=== PATIENT | male | born 1945 | race Caucasian/White ===

== ENCOUNTER 2016-12-03 02:43 | Inpatient (IN) | payer MEDICARE ==
[~2016-12-03] VITALS: Ht 172.7 cm; Wt 76.0 kg
[~2016-12-03 02:43] MED LIST: CIPR500T4 PO; PRED5TAB PO
[2016-12-03 02:52] VITALS: BP 109/76; PULSE 69; RESP 16; TEMP 97.8; O2SAT 96
[2016-12-03] MEDS ORDERED: SODIUM CHLOR 0.9% 1000 ML INJ 1,000 ML IV SCH (02:54)
[2016-12-03] MEDS ORDERED: PANTOPRAZOLE SODIUM 40 MG VIAL IV PUSH ONE (03:00)
[2016-12-03] MEDS ORDERED: SODIUM CHLORIDE 0.9% FLUSH 5 ML FLUSH IVF PRN (03:00)
[2016-12-03] MEDS ORDERED: ONDANSETRON HCL 4 MG/2 ML VIAL IVP ONE (03:00)
[2016-12-03] MEDS ORDERED: SODIUM CHLOR 0.9% 1000 ML INJ 1,000 ML IV ONE ×2 (03:00)
[2016-12-03] MEDS ORDERED: FAMOTIDINE 20 MG/2 ML VIAL IV PUSH ONE (03:00)
[2016-12-03 03:01] VITALS: PULSE 67; RESP 16; O2SAT 96
[2016-12-03] MEDS: PANTOPRAZOLE INJ 80 MG in SODIUM CHLORIDE 0.9% INJ 100 ML IV SCH ×2 (03:29→14:25)
[2016-12-03 03:32] LABS: BASOPHIL % 0.2 % (0.0-2.0); EOSINOPHIL # 0.2 TH/MM3 (0-0.4); EOSINOPHIL % 1.2 % (0.0-4.0); HEMATOCRIT 36.5 % (39.0-51.0); LYMPHOCYTE # 1.7 TH/MM3 (1.0-4.8); MEAN CELL VOLUME 91.7 FL (80.0-100.0); MEAN CORPUSCULAR HEMOGLOBIN 31.9 PG (27.0-34.0); MEAN CORPUSCULAR HGB CONC 34.8 % (32.0-36.0); MONO % 7.9 % (0.0-8.0); NEUT % 78.7 % (16.0-70.0); PLATELET COUNT 427 TH/MM3 (150-450); RED BLOOD COUNT 3.98 MIL/MM3 (4.50-5.90); RED CELL DISTRIBUTION WIDTH 13.1 % (11.6-17.2)
[2016-12-03 03:34] LABS: HEMO FLAGS AUTO DIFF
--- NOTE | 2016-12-03 03:41 | RADRPT ---
EXAM DATE/TIME: 12/03/2016 02:56 [facility] COMPARISON: CHEST SINGLE AP, May 25, 2016, 6:15. INDICATIONS : Shortness of breath. MEDICAL HISTORY : Chronic obstructive pulmonary disease. SURGICAL HISTORY : None. ENCOUNTER: Initial ACUITY: 1 day PAIN SCORE: 0/10 LOCATION: Bilateral chest FINDINGS: A single view of the chest demonstrates the lungs to be symmetrically aerated without evidence of mas s, infiltrate or effusion. The cardiomediastinal contours are unremarkable. Osseous structures are intact. CONCLUSION: No acute disease. Henry Servin MD on December 03, 2016 at 3:40 Board Certified Radiologist. This report was verified electronically.
[2016-12-03 03:42] LABS: PROTHROMBIN TIME - PATIENT 11.1 SEC (9.8-11.6)
[2016-12-03 03:48] LABS: ALT (GPT) 34 U/L (12-78); ANION GAP 12 MEQ/L (5-15); AST (GOT) 30 U/L (15-37); BLOOD UREA NITROGEN 15 MG/DL (7-18); CHLORIDE 97 MEQ/L (98-107); GLOMERULAR FILTRATION RATE 70 ML/MIN (>89); POTASSIUM 3.9 MEQ/L (3.5-5.1); SODIUM (NA) 134 MEQ/L (136-145)
[2016-12-03 03:50] LABS: ALKALINE PHOSPHATASE 56 U/L (45-117); TOTAL BILIRUBIN ADULT 0.4 MG/DL (0.2-1.0)
[2016-12-03 03:51] LABS: CREATINE KINASE 95 U/L (39-308)
--- NOTE | 2016-12-03 04:00 | PD ---
HPI Chief Complaint: GI Complaint Time Seen by Provider: 02:54 Travel History International Travel<30 days: Yes Contact w/Intl Traveler<30days: Yes Name of Country Traveled to: [facility] Traveled to known affect area: No History of Present Illness HPI Patient is a 71-year-old male who presents to emergency room with complaints of nausea vomiting and abdominal pain. Patient reports that he went on vacation and returned from the [facility] on the after a 4 day vacation. Reports that after he came home from his medication, he had severe pain to his lower abdomen for 12 hours. Reports that he had resolution of symptoms of his abdominal pain after this 24 hours. Patient reports that he has been feeling fine since then, reports that the last couple days, he has been having low-grade fevers with a temperature around 99. Patient reports that he began to feel sick tonight, reports that he began to have abdominal pain and felt nauseous. Patient reports that he vomited around 5 PM today, reports that he was feeling better and decided to his sleep. Patient reports that he was too uncomfortable to sleep as he had diffuse abdominal pain, reports that he got up to go to the emergency room, reports that before he knew it he vomited coffee ground emesis and felt weak and fell to the ground hitting his head on the floor. Patient admits that he did loss consciousness after he fell for about 30 seconds. Patient reports that he is currently not on any anticoagulants. Reports that he has no medical problems at all. His only complaint currently is abdominal pain. Patient denies ingestion of alcohol. Patient denies history of GI bleed in the past. Reports that his stools have been normal color and not dark. Patient does admit to having decreased urine output over the past 2 days. Patient denies dysuria, urinary urgency or frequency. Patient denies chest pain or shortness of breath. Patient with no other complaints. PFSH Past Medical History Diminished Hearing: No Respiratory: Yes Immunizations Current: Yes Past Surgical History Abdominal Surgery: Yes (hernia, inguinal) Joint Replacement: Yes (LEFT HIP 2004) Family History Family History: Negative Social History Alcohol Use: No Tobacco Use: No Substance Use: No Allergies-Medications (Allergen,Severity, Reaction): Coded Allergies: No Known Allergies (Verified , 12/03/16) Reported Meds & Prescriptions Reported Meds & Active Scripts Active No Active Prescriptions or Reported Medications Review of Systems General / Constitutional: No: Fever Eyes: No: Visual changes HENT: No: Headaches Cardiovascular: No: Chest Pain or Discomfort Respiratory: No: Shortness of Breath Gastrointestinal: Positive: Nausea, Vomiting, Diarrhea, Abdominal Pain, Hematemesis Genitourinary: No: Dysuria Musculoskeletal: No: Pain Skin: No Rash Neurologic: No: Weakness Psychiatric: No: Depression Endocrine: No: Polydipsia Hematologic/Lymphatic: No: Easy Bruising Physical Exam Narrative GENERAL: Patient in moderate distress SKIN: Warm and dry. HEAD: Atraumatic. Normocephalic. EYES: Pupils equal and round. No scleral icterus. No injection or drainage. ENT: No nasal bleeding or discharge. Mucous membranes pink and moist. Patient with coffee-ground emesis on. NECK: Trachea midline. No JVD. Patient with mild right sided paraspinal tenderness - patient currently in C-spine precautions CARDIOVASCULAR: Regular rate and rhythm. No murmur appreciated. RESPIRATORY: No accessory muscle use. Clear to auscultation. Breath sounds equal bilaterally. GASTROINTESTINAL: Abdomen soft, diffusely tender abdomen with no rebound or guarding on exam, pt with heme neg stool - light brown stool MUSCULOSKELETAL: No obvious deformities. No clubbing. No cyanosis. No edema. NEUROLOGICAL: Awake and alert. No obvious cranial nerve deficits. Motor grossly within normal limits. Normal speech. PSYCHIATRIC: Appropriate mood and affect; insight and judgment normal. Data Data Last Documented VS Vital Signs Date Time Temp Pulse Resp B/P Pulse Ox O2 Delivery O2 Flow Rate FiO2 12/03/16 03:01 97 Room Air 12/03/16 03:01 67 16 12/03/16 02:52 97.8 109/76 Orders Complete Blood Count With Diff (12/03/16 02:54) Comprehensive Metabolic Panel (12/03/16 02:54) Lipase (12/03/16 02:54) Lactic Acid (12/03/16 02:54) Prothrombin Time / Inr (Pt) (12/03/16 02:54) Act Partial Throm Time (Ptt) (12/03/16 02:54) Urinalysis - C+S If Indicated (12/03/16 02:54) Ct Abd/Pel W/O Iv Contrast (12/03/16 02:54) Iv Access Insert/Monitor (12/03/16 02:54) Ecg Monitoring (12/03/16 02:54) Oximetry (12/03/16 02:54) NPO (12/03/16 02:54) Ondansetron Inj (Zofran Inj) (12/03/16 03:00) Sodium Chlor 0.9% 1000 Ml Inj (Ns 1000 M (12/03/16 02:54) Sodium Chloride 0.9% Flush (Ns Flush) (12/03/16 03:00) Electrocardiogram (12/03/16 02:54) Chest, Single Ap (12/03/16 02:54) Oxygen Administration (12/03/16 02:54) Famotidine Inj (Pepcid Inj) (12/03/16 03:00) Pantoprazole Inj (Protonix Inj) (12/03/16 04:00) Pantoprazole Inj (Protonix Inj) (12/03/16 03:00) Ckmb (Isoenzyme) Profile (12/03/16 02:54) Troponin I (12/03/16 02:54) Sodium Chlor 0.9% 1000 Ml Inj (Ns 1000 M (12/03/16 03:00) Ct Brain W/O Iv Contrast(Rout) (12/03/16 02:58) Ct Cerv Spine W/O Contrast (12/03/16 02:58) Sodium Chlor 0.9% 1000 Ml Inj (Ns 1000 M (12/03/16 03:00) Ng Gastric Tube Insert/Monitor (12/03/16 02:59) Admit Order (Ed Use Only) (12/03/16 05:18) Labs Laboratory Tests Test 12/03/16 03:15 White Blood Count 14.0 TH/MM3 Red Blood Count 3.98 MIL/MM3 Hemoglobin 12.7 GM/DL Hematocrit 36.5 % Mean Corpuscular Volume 91.7 FL Mean Corpuscular Hemoglobin 31.9 PG Mean Corpuscular Hemoglobin 34.8 % Concent Red Cell Distribution Width 13.1 % Platelet Count 427 TH/MM3 Mean Platelet Volume 7.6 FL Neutrophils (%) (Auto) 78.7 % Lymphocytes (%) (Auto) 12.0 % Monocytes (%) (Auto) 7.9 % Eosinophils (%) (Auto) 1.2 % Basophils (%) (Auto) 0.2 % Neutrophils # (Auto) 11.0 TH/MM3 Lymphocytes # (Auto) 1.7 TH/MM3 Monocytes # (Auto) 1.1 TH/MM3 Eosinophils # (Auto) 0.2 TH/MM3 Basophils # (Auto) 0.0 TH/MM3 CBC Comment AUTO DIFF Differential Total Cells 100 Counted Neutrophils % (Manual) 67 % Band Neutrophils % 4 % Lymphocytes % 18 % Monocytes % 9 % Eosinophils % 1 % Neutrophils # (Manual) 10.1 TH/MM3 Myelocytes 1 % Differential Comment FINAL DIFF MANUAL Atypical Lymphocytes % Platelet Estimate NORMAL Platelet Morphology Comment NORMAL Red Cell Morphology Comment NORMAL Prothrombin Time 11.1 SEC Prothromb Time International 1.0 RATIO Ratio Activated Partial 25.0 SEC Thromboplast Time Sodium Level 134 MEQ/L Potassium Level 3.9 MEQ/L Chloride Level 97 MEQ/L Carbon Dioxide Level 25.0 MEQ/L Anion Gap 12 MEQ/L Blood Urea Nitrogen 15 MG/DL Creatinine 1.05 MG/DL Estimat Glomerular Filtration 70 ML/MIN Rate Random Glucose 154 MG/DL Lactic Acid Level 1.7 mmol/L Calcium Level 8.7 MG/DL Total Bilirubin 0.4 MG/DL Aspartate Amino Transf 30 U/L (AST/SGOT) Alanine Aminotransferase 34 U/L (ALT/SGPT) Alkaline Phosphatase 56 U/L Total Creatine Kinase 95 U/L Troponin I LESS THAN 0.02 NG/ML Total Protein 6.6 GM/DL Albumin 2.7 GM/DL Lipase 77 U/L [facility] Medical Decision Making Medical Screen Exam Complete: Yes Emergency Medical Condition: Yes Interpretation(s) EKG at 0313: Normal sinus rhythm at 61 bpm, ET/QTC 436/439, no acute ST or T- wave changes Vital Signs Date Time Temp Pulse Resp B/P Pulse Ox O2 Delivery O2 Flow Rate FiO2 12/03/16 03:01 97 Room Air 12/03/16 03:01 67 16 96 Room Air 12/03/16 03:01 16 12/03/16 02:52 97.8 69 16 109/[address] 12/03/16257 Signed Impressions: Service Date/Time: Saturday, December 03, 2016 03:30 - CONCLUSION: No acute intracranial disease. Henry Servin MD Cervical Spine CT 12/03/16257 Signed Impressions: Service Date/Time: Saturday, December 03, 2016 03:32 - CONCLUSION: No fracture or subluxation. Minimal retrolisthesis C5 on C6, degenerative in nature. Henry Serivn MD Chest X-Ray 12/03/16253 Signed Impressions: Service Date/Time: Saturday, December 03, 2016 02:56 - CONCLUSION: No acute disease. Henry Servin MD Abdomen/Pelvis CT 12/03/16253 Signed Impressions: Service Date/Time: Saturday, December 03, 2016 03:38 - CONCLUSION: 1. Multiple dilated loops of small bowel which can be seen with early obstruction. 2. Diverticulosis without diverticulitis. 3. Minimal ascites. Henry Servin MD Differential Diagnosis GI bleed, gastric ulcer, ACS, electrolyte abnormality, colitis Narrative Course Patient is a 71-year-old male who presents to emergency room with complaints of nausea vomiting coffee ground emesis. Patient reports that he has been having intermittent abdominal pain since he returned home from his vacation at the [facility] on November 22, 2016. Upon arrival to the emergency room, patient with diffuse abdominal pain. Patient has been placed on rn cardiac rehab as well as continuous pulse oximeter. IV line established, patient currently receiving IV fluids as well as IV Zofran for nausea. Patient does have concerning coffee ground emesis in his valle, patient started on Protonix as well as Protonix drip. Given his questionable syncopal episode and pain to his lower neck, CT of the head and neck ordered for evaluation of possible intracranial hemorrhage versus C-spine fracture. CBC, BMP, LFTs, coags ordered for further evaluation symptoms. CT abdomen and pelvis ordered for further evaluation of abdominal pain. Patient re-evaluated, pt feeling much better, reviewed all labs and studies with pt and his including all findings. pt will be admitted for gi bleed - pt is heme neg for below, pt also with dilated loop of bowels, - only surgery is inguinal hernia repair by Dr Velez, pt agreeable to plan of care Physician Communication Physician Communication Case reviewed with Dr Giordano who accepts pt to service Diagnosis Primary Impression: GI bleed Qualified Code: K92.2 - Gastrointestinal hemorrhage, unspecified gastrointestinal hemorrhage type Additional Impressions: Syncope and collapse dilated loops of small bowel Admitting Information Admitting Physician Requests: Admit Scripts No Active Prescriptions or Reported Meds Laurel Davidson DO Dec 03, 2016 04:00
[2016-12-03 04:12] LABS: BANDS 4 % (0-6); EOSINOPHILS 1 % (0-4); MYELOCYTES 1 % (0-0); NEUTROPHIL # MANUAL DIFF 10.1 TH/MM3 (1.8-7.7); POLYS (SEG NEUTROPHILS) 67 % (16-70); SCAN/DIFF FINAL DIFF MANUAL; WBC DIFF SAMPLE 100
[2016-12-03 04:14] LABS: PLATELET ESTIMATE SMEAR NORMAL (NORMAL); PLATELET MORPHOLOGY NORMAL (NORMAL)
--- NOTE | 2016-12-03 04:32 | RADRPT ---
EXAM DATE/TIME: 12/03/2016 03:30 [facility] COMPARISON: No previous studies available for comparison. INDICATIONS : Trauma; fall. Patient hit the back of his head. RADIATION DOSE: 56.35 CTDIvol (mGy) MEDICAL HISTORY : Hernia, inguinal. SURGICAL HISTORY : None. ENCOUNTER: Initial ACUITY: 1 day PAIN SCALE: 2/10 LOCATION: cranial TECHNIQUE: Multiple contiguous axial images were obtained of the head. Using automated exposure control and adj ustment of the mA and/or kV according to patient size, radiation dose was kept as low as reasonably a chievable to obtain optimal diagnostic quality images. FINDINGS: CEREBRUM: The ventricles are normal for age. No evidence of midline shift, mass lesion, hemorrhage or acute in farction. No extra-axial fluid collections are seen. POSTERIOR FOSSA: The cerebellum and brainstem are intact. The 4th ventricle is midline. The cerebellopontine angle i s unremarkable. EXTRACRANIAL: The visualized portion of the orbits is intact. SKULL: The calvaria is intact. No evidence of skull fracture. CONCLUSION: No acute intracranial disease. Henry Servin MD on December 03, 2016 at 4:30 Board Certified Radiologist. This report was verified electronically.
--- NOTE | 2016-12-03 04:33 | RADRPT ---
EXAM DATE/TIME: 12/03/2016 03:32 [facility] COMPARISON: No previous studies available for comparison. INDICATIONS : Trauma; fall. RADIATION DOSE: 41.75 CTDIvol (mGy) MEDICAL HISTORY : Hernia, inguinal. SURGICAL HISTORY : None. ENCOUNTER: Initial ACUITY: 1 day PAIN SCALE: 2/10 LOCATION: neck TECHNIQUE: Volumetric scanning of the cervical spine was performed. Multiplanar reconstructions in the sagittal, coronal and oblique axial planes were performed. Using automated exposure control and adjustment o f the mA and/or kV according to patient size, radiation dose was kept as low as reasonably achievable to obtain optimal diagnostic quality images. FINDINGS: VERTEBRAE: Normal vertebral body height. Advanced multilevel degenerative changes greatest at C5-6 and C6-7 leve ls. No fracture. ALIGNMENT: Minimal retrolisthesis C5 on C6. No compression fracture. Facets are well aligned. Craniocervical jefe ction is intact. CONCLUSION: No fracture or subluxation. Minimal retrolisthesis C5 on C6, degenerative in nature. Henry Servin MD on December 03, 2016 at 4:30 Board Certified Radiologist. This report was verified electronically.
--- NOTE | 2016-12-03 04:41 | RADRPT ---
EXAM DATE/TIME: 12/03/2016 03:38 [facility] COMPARISON: No previous studies available for comparison. INDICATIONS : Abdominal pain with vomiting. ORAL CONTRAST: No oral contrast ingested. RADIATION DOSE: 16.34 CTDIvol (mGy) MEDICAL HISTORY : Hernia, inguinal. SURGICAL HISTORY : Left hip replacement. ENCOUNTER: Initial ACUITY: 1 day PAIN SCALE: 6/10 LOCATION: medial abdomen. TECHNIQUE: Volumetric scanning of the abdomen and pelvis was performed. Using automated exposure control and ad justment of the mA and/or kV according to patient size, radiation dose was kept as low as reasonably achievable to obtain optimal diagnostic quality images. FINDINGS: LOWER LUNGS: The visualized lower lungs are clear. LIVER: Homogeneous density without lesion. There is no dilation of the biliary tree. No calcified gallston es. SPLEEN: Normal size without lesion. PANCREAS: Within normal limits. KIDNEYS: Normal in size and shape. There is no mass, stone, or hydronephrosis. ADRENAL GLANDS: Within normal limits. VASCULAR: There is no aortic aneurysm. BOWEL/MESENTERY: Multiple dilated loops of small bowel. Transition point seen. Diverticulosis of the colon. No perfora tion or abscess. Trace ascites. There is no free intraperitoneal air or fluid. ABDOMINAL WALL: Within normal limits. RETROPERITONEUM: There is no lymphadenopathy. BLADDER: No wall thickening or mass. REPRODUCTIVE: Prostatic calcifications. INGUINAL: There is no lymphadenopathy or hernia. Previous inguinal hernia repairs. MUSCULOSKELETAL: Within normal limits for patient age. CONCLUSION: 1. Multiple dilated loops of small bowel which can be seen with early obstruction. 2. Diverticulosis without diverticulitis. 3. Minimal ascites. Henry Servin MD on December 03, 2016 at 4:35 Board Certified Radiologist. This report was verified electronically.
[2016-12-03] MEDS ORDERED: ONDANSETRON HCL 4 MG/2 ML VIAL IVP PRN (05:30)
[2016-12-03] MEDS ORDERED: SODIUM CHLORIDE 0.9% FLUSH 5 ML FLUSH FLUSH PRN (05:30)
[2016-12-03] MEDS ORDERED: MORPHINE SULFATE 4 MG/ML INJ IV PRN ×2 (05:30)
[2016-12-03] MEDS ORDERED: ACETAMINOPHEN 1000 MG/100 ML VIAL IV PRN (05:30)
[2016-12-03] MEDS ORDERED: BISACODYL 10 MG SUPP PR PRN (05:30)
--- NOTE | 2016-12-03 05:54 | HHI.HP ---
[facility] Norma Mays MD Admission Diagnosis GI BLEED, SYNCOPE Diagnoses: (1) GI bleed Diagnosis: Principal (2) Abdominal pain Diagnosis: Principal (3) SBO (small bowel obstruction) Diagnosis: Principal (4) Syncope and collapse Diagnosis: Principal Travel History International Travel<30 Days: Yes Contact w/Intl Traveler <30 Da: Yes Name of Country Traveled to: [facility] Traveled to Known Affected Are: No History of Present Illness This is a 71-year-old male with no significant PMH who was brought to the ER by EMS secondary to abdominal pain with associated nausea and vomiting and syncope. Per pt and , they recently traveled to [facility] and returned home on 11/22/16. That night, pt complained of abdominal pain, symptoms have been intermittent since then. Today pt had gotten up to go to the bathroom, had episode of coffee ground emesis followed by syncope lasting approx 30seconds. No seizure activity noted. BP noted to be in the 80s systolic by EMS. On arrival, BP 109/76, HR 69, O2 sat 96% on RA, Afebrile. WBC 14.0. Chemistry essentially unremarkable. Troponin negative. CT Head and C-spine negative for acute findings. CXR with no acute findings. CT Abd/ Pelvis w/ dilated loops of small bowel, possibly early obstruction. Hemoccult negative. Started on Protonix gtt in ER. Pt and requesting to be seen by Dr. Velez and GI doctor. Review of Systems Other ROS: 14 point review of systems otherwise negative. Past Family Social History Past Medical History PMH: None Past Surgical History PAST SURGICAL HISTORY: Inguinal Hernia Repair, Left Hip Replacement Allergies: Coded Allergies: No Known Allergies (Verified , 12/03/16) Family History PAST FAMILY HISTORY: Reviewed. No h/o DM or CAD Social History PAST SOCIAL HISTORY: Negative for alcohol tobacco or drugs. Physical Exam Vital Signs Vital Signs Date Time Temp Pulse Resp B/P Pulse Ox O2 Delivery O2 Flow Rate FiO2 12/03/16 03:01 97 Room Air 12/03/16 03:01 67 16 96 Room Air 12/03/16 03:01 16 12/03/16 02:52 97.8 69 16 109/76 96 Physical Exam PE: GENERAL: Middle-aged white male in no acute distress. at bedside. HEENT: PERRLA, EOMI. No scleral icterus or conjunctival pallor. No lid lag or facial droop. CARDIOVASCULAR: Regular rate and rhythm. No obvious murmurs to auscultation. No chest tenderness to palpation. RESPIRATORY: No obvious rhonchi or wheezing. Clear to auscultation. Breath sounds equal bilaterally. GASTROINTESTINAL: Abdomen soft, mild diffuse tenderness to palpation, nondistended. BS normal. MUSCULOSKELETAL: Extremities without clubbing, cyanosis, or edema. No obvious deformities. NEUROLOGICAL: Awake, alert and oriented x4. No focal neurologic deficits. Moving both upper and lower extremities spontaneously. Laboratory Laboratory Tests Test 12/03/16 03:15 White Blood Count 14.0 Red Blood Count 3.98 Hemoglobin 12.7 Hematocrit 36.5 Mean Corpuscular Volume 91.7 Mean Corpuscular Hemoglobin 31.9 Mean Corpuscular Hemoglobin 34.8 Concent Red Cell Distribution Width 13.1 Platelet Count 427 Mean Platelet Volume 7.6 Neutrophils (%) (Auto) 78.7 Lymphocytes (%) (Auto) 12.0 Monocytes (%) (Auto) 7.9 Eosinophils (%) (Auto) 1.2 Basophils (%) (Auto) 0.2 Neutrophils # (Auto) 11.0 Lymphocytes # (Auto) 1.7 Monocytes # (Auto) 1.1 Eosinophils # (Auto) 0.2 Basophils # (Auto) 0.0 CBC Comment AUTO DIFF Differential Total Cells 100 Counted Neutrophils % (Manual) 67 Band Neutrophils % 4 Lymphocytes % 18 Monocytes % 9 Eosinophils % 1 Neutrophils # (Manual) 10.1 Myelocytes 1 Differential Comment FINAL DIFF MANUAL Atypical Lymphocytes Platelet Estimate NORMAL Platelet Morphology Comment NORMAL Red Cell Morphology Comment NORMAL Prothrombin Time 11.1 Prothromb Time International 1.0 Ratio Activated Partial 25.0 Thromboplast Time Sodium Level 134 Potassium Level 3.9 Chloride Level 97 Carbon Dioxide Level 25.0 Anion Gap 12 Blood Urea Nitrogen 15 Creatinine 1.05 Estimat Glomerular Filtration 70 Rate Random Glucose 154 Lactic Acid Level 1.7 Calcium Level 8.7 Total Bilirubin 0.4 Aspartate Amino Transf 30 (AST/SGOT) Alanine Aminotransferase 34 (ALT/SGPT) Alkaline Phosphatase 56 Total Creatine Kinase 95 Troponin I LESS THAN 0.02 Total Protein 6.6 Albumin 2.7 Lipase 77 Result Diagram: 12/03/1631412/03/16314 Assessment and Plan Problem List: (1) GI bleed ICD Code: K92.2 Status: Acute (2) Abdominal pain ICD Code: R10.9 Status: Acute (3) SBO (small bowel obstruction) ICD Code: K56.69 Status: Acute (4) Syncope and collapse ICD Code: R55 Status: Acute Assessment and Plan A/P: 1. GI Bleed: s/p episode of coffee-ground emesis prior to arrival in ER. Hemoccult negative. Vitals stable. Hgb 12.7. Started on Protonix gtt in ER, will continue. GI Consult for further evaluation of questionable bleed. 2. Abdominal Pain: diffuse abdominal pain, nausea and vomiting intermittently x2 wks. Denies fever, chills or diarrhea. +leukocytosis, afebrile. Will start on empiric treatment w/ Cipro/Flagyl. 3. Early SBO: CT Abd/Pelvis w/ multiple loops of dilated small bowel, likely early SBO, images reviewed by me. NPO, IVF, analgesics/antiemetics as needed. Nausea/vomiting now resolved. Pt and requesting to be seen by Dr. Velez. No emergent surgical intervention indicated at this time. Will place routine consult. 4. Syncope: syncopal episode following vomiting, likely vasovagal. EMS reported BP 80's systolic, currently BP 109/76, HR 69. Initial trop negative. IVF for hydration. Check serial enzymes to eval for underlying ischemia. 5. DVT Prophylaxis: SCD/Teds. 6. Social work for d/c planning as needed. 7. Case discussed w/ ER physician at length. Physician Certification 2 Midnight Certification Type: Admission for Inpatient Services Order for Inpatient Services The services are ordered in accordance with Medicare regulations or non- Medicare payer requirements, as applicable. In the case of services not specified as inpatient-only, they are appropriately provided as inpatient services in accordance with the 2-midnight benchmark. Estimated LOS (days): 2 days is the estimated time the patient will need to remain in the hospital, assuming treatment plan goals are met and no additional complications. Post-Hospital Plan: Not yet determined Problem Qualifiers (1) GI bleed: Qualified Code: K92.2 - Gastrointestinal hemorrhage, unspecified gastrointestinal hemorrhage type Evelina Giordano MD Dec 03, 2016 05:54
[2016-12-03] MEDS: SODIUM CHLOR 0.9% 1000 ML INJ 1,000 ML IV SCH ×2 (06:00→18:10)
[2016-12-03] MEDS: CIPROFLOXACIN 400 MG PREMIX 200 ML IV SCH ×2 (06:01→18:10)
[2016-12-03 06:19] LABS: BACTERIA, URINE FEW /hpf; BLOOD, URINE NEG (NEG); COMMENT (UR) CULT NOT INDICATED; CULTURE IF INDICATED CULT NOT INDICATED; GLUCOSE,URINE NEG (NEG); KETONE, URINE 10 mg/dL (NEG); MUCUS URINE FEW /lpf (OCC); NITRITE,URINE NEG (NEG); URINE COLOR LIGHT-YELLOW (YELLW/STRAW)
--- NOTE | 2016-12-03 08:19 | PD.CONS ---
HPI History of Present Illness This is a 71 year old male patient who recently traveled to [place] and returned home on 11/22. On the way back, he started having intermittent abdominal pain described as "glass in his lower abdomen." He also had a some abdominal distention with this. He has had bowel movements, but denies any diarrhea. He tried taking clear and full liquids for a few days and seemed to be getting better. He does not usually get GERD, but has been having frequent reflux and heartburn since his symptoms began. Yesterday, he had a papaya for breakfast, oatmeal for lunch, and a salmon and salad for dinner. After dinner, he started having nausea and vomiting. His emesis consisted of coffee ground emesis. After this, he had a syncopal episode where he fell backwards and struck his head. EMT was called and he was brought to the ER for further evaluation. He has been having fever and chills, but his reports that his last fever was about 3 days ago and was 100.5. Abdomen/Pelvis CT (12/03/16)----- > 1. Multiple dilated loops of small bowel which can be seen with early obstruction. 2. Diverticulosis without diverticulitis. 3. Minimal ascites. He has a hx of 2 hernia repairs, one inguinal and he cannot recall the other. No other abdominal surgeries. No hx of PUD. He does not drink and does not take NSAIDs. He has never had a colonoscopy. He last had a bowel movement yesterday at 530pm and reports he is not passing flatus at this time. (Tammy Puri) [facility]LY [facility] Past Medical History Denies Past Surgical History Inguinal Hernia Repair Unknown hernia repair Left Hip Replacement (Tammy Puri) Coded Allergies: No Known Allergies (Verified , 12/03/16) Medications Allergies Coded Allergies Type Severity Reaction Last Updated Verified No Known Allergies 12/03/16 Yes Active Scripts Medications Dose Route/Sig Days Date Category No Active Prescriptions or Reported Medications Rx Family History No family hx of esophageal, gastric, or colorectal cancer. Father had heart disease Mother had TIAs Social History Negative for alcohol tobacco or drugs. (Tammy Puri) Review of Systems Constitutional: COMPLAINS OF: Fatigue, Fever, Chills, DENIES: Weight loss Respiratory: DENIES: Cough, Shortness of breath Cardiovascular: DENIES: Chest pain Gastrointestinal: COMPLAINS OF: Abdominal pain, Nausea, Vomiting, Swelling of Abdomen, Heartburn, Hematemesis, DENIES: Black stools, Bloody stools, Constipation, Diarrhea Musculoskeletal: COMPLAINS OF: Joint pain Integumentary: DENIES: Abnormal pigmentation Hematologic/lymphatic: DENIES: Bruising Neurologic: DENIES: Headache Psychiatric: DENIES: Confusion (PuriTammy Arandaed FRITZ) GI Exam Vitals I&O Vital Signs Date Time Temp Pulse Resp B/P Pulse Ox O2 Delivery O2 Flow Rate FiO2 12/03/16 03:01 97 Room Air 12/03/16 03:01 67 16 96 Room Air 12/03/16 03:01 16 12/03/16 02:52 97.8 69 16 109/76 96 I/O 12/02/16 12/02/16 12/02/16 12/03/16 12/03/16 12/03/16 07:00 15:00 23:00 07:00 15:00 23:00 Output Total 3000 ml Balance -3000 ml Output Emesis 3000 ml Imaging Last Impressions Head CT 12/03/16257 Signed Impressions: Service Date/Time: Saturday, December 03, 2016 03:30 - CONCLUSION: No acute intracranial disease. Henry Servin MD Cervical Spine CT 12/03/16257 Signed Impressions: Service Date/Time: Saturday, December 03, 2016 03:32 - CONCLUSION: No fracture or subluxation. Minimal retrolisthesis C5 on C6, degenerative in nature. Henry Servin MD Chest X-Ray 12/03/16253 Signed Impressions: Service Date/Time: Saturday, December 03, 2016 02:56 - CONCLUSION: No acute disease. Henry Servin MD Abdomen/Pelvis CT 12/03/16253 Signed Impressions: Service Date/Time: Saturday, December 03, 2016 03:38 - CONCLUSION: 1. Multiple dilated loops of small bowel which can be seen with early obstruction. 2. Diverticulosis without diverticulitis. 3. Minimal ascites. Henry Servin MD Laboratory Test 12/03/16 12/03/16 03:15 06:00 White Blood Count 14.0 TH/MM3 Red Blood Count 3.98 MIL/MM3 Hemoglobin 12.7 GM/DL Hematocrit 36.5 % Mean Corpuscular Volume 91.7 FL Mean Corpuscular Hemoglobin 31.9 PG Mean Corpuscular Hemoglobin 34.8 % Concent Red Cell Distribution Width 13.1 % Platelet Count 427 TH/MM3 Mean Platelet Volume 7.6 FL Neutrophils (%) (Auto) 78.7 % Lymphocytes (%) (Auto) 12.0 % Monocytes (%) (Auto) 7.9 % Eosinophils (%) (Auto) 1.2 % Basophils (%) (Auto) 0.2 % Neutrophils # (Auto) 11.0 TH/MM3 Lymphocytes # (Auto) 1.7 TH/MM3 Monocytes # (Auto) 1.1 TH/MM3 Eosinophils # (Auto) 0.2 TH/MM3 Basophils # (Auto) 0.0 TH/MM3 CBC Comment AUTO DIFF Differential Total Cells 100 Counted Neutrophils % (Manual) 67 % Band Neutrophils % 4 % Lymphocytes % 18 % Monocytes % 9 % Eosinophils % 1 % Neutrophils # (Manual) 10.1 TH/MM3 Myelocytes 1 % Differential Comment FINAL DIFF MANUAL Atypical Lymphocytes % Platelet Estimate NORMAL Platelet Morphology Comment NORMAL Red Cell Morphology Comment NORMAL Prothrombin Time 11.1 SEC Prothromb Time International 1.0 RATIO Ratio Activated Partial 25.0 SEC Thromboplast Time Sodium Level 134 MEQ/L Potassium Level 3.9 MEQ/L Chloride Level 97 MEQ/L Carbon Dioxide Level 25.0 MEQ/L Anion Gap 12 MEQ/L Blood Urea Nitrogen 15 MG/DL Creatinine 1.05 MG/DL Estimat Glomerular Filtration 70 ML/MIN Rate Random Glucose 154 MG/DL Lactic Acid Level 1.7 mmol/L Calcium Level 8.7 MG/DL Total Bilirubin 0.4 MG/DL Aspartate Amino Transf 30 U/L (AST/SGOT) Alanine Aminotransferase 34 U/L (ALT/SGPT) Alkaline Phosphatase 56 U/L Total Creatine Kinase 95 U/L Troponin I LESS THAN 0.02 NG/ML Total Protein 6.6 GM/DL Albumin 2.7 GM/DL Lipase 77 U/L Urine Color LIGHT-YELLOW Urine Turbidity CLEAR Urine pH 7.0 Urine Specific [place] 1.008 Urine Protein NEG mg/dL Urine Glucose (UA) NEG mg/dL Urine Ketones 10 mg/dL Urine Occult Blood NEG Urine Nitrite NEG Urine Bilirubin NEG Urine Urobilinogen LESS THAN 2.0 MG/DL Urine Leukocyte Esterase NEG Urine RBC 1 /hpf Urine WBC 2 /hpf Urine Bacteria FEW /hpf Urine Mucus FEW /lpf Microscopic Urinalysis Comment CULT NOT INDICATED Physical Examination HEENT: Normocephalic; atraumatic; no jaundice. Throat is clear. NECK: Neck is supple, no JVD, no lymphadenopathy. CHEST: CTA CARDIAC: RRR ABDOMEN: Soft, mildly distended, nontender; no hepatosplenomegaly; bowel sounds are present in all four quadrants. EXTREMITIES: No clubbing, cyanosis, or edema. SKIN: Red spotted rash to trunk and BUE- pt states acinetic keratosis- normal YOUTH MANAGER: No focal deficits; alert and oriented times three. (PuriTammy Trotter GLOST TILE SHADER) Assessment and Plan Plan ASSESSMENT: - ? GIB, Coffee ground emesis. One episode of coffee ground emesis yesterday. No hx of PUD. No NSAIDs/ETOH. HH stable 12.7/36.5. Protonix Gtt. NPO. No further episodes. - N/V, Abdominal pain with abnormal imaging concerning for possible early small bowel obstruction. Abdomen/Pelvis CT (12/03/16)-----> 1. Multiple dilated loops of small bowel which can be seen with early obstruction. 2. Diverticulosis without diverticulitis. 3. Minimal ascites. Symptoms began on the way back from [place]. He did have ice cubes and salad washed in their water. It started as lower abdominal pain and fevers WITHOUT diarrhea. This was improving but he started having epigastric pain and nausea/vomiting yesterday. No other sick contacts. WBC 14.0. Pt had 2 hernia surgeries, one inguinal- cannot recall what the other was but denies any other abdominal surgeries. He last had a bowel movement yesterday at 530pm. Clinically he is mildly distended. No further nausea/vomiting. Will get repeat KUB and give trial of clear liquids. ? Gastroenteritis causing inflammation of the small bowel. GS has been consulted for further evaluation and recommendations. - Leukocytosis. WBC 14.0. Cipro/Flagyl - Anemia. HH stable. Will monitor. - Red spotted rash to trunk and upper extremities. Pt reports this is his normal and it is r/t actinic keratosis. PLAN: - Clear liquids - Cont. Protonix Gtt - Monitor serial H/H's - KUB today - CBC, CMP in am - Cipro/Flagyl - GS has been consulted - Supportive care - Further recommendations to follow based on results of above - Pt seen and examined by Dr. Miller and myself and this note is written on his behalf (Tammy Puri) Physician Comments Patient seen and examined Agree with above Continue with current supportive care Monitor labs We will obtain a Gastrografin small bowel follow-through Consider EGD colonoscopy thereafter (Jp Miller MD) Tammy Puri Dec 03, 2016 08:19 Jp Miller MD Dec 03, 2016 18:29
--- NOTE | 2016-12-03 08:24 | EKG ---
Date Performed: 12/03/2016 Time Performed: 03:15:22 PTAGE: 71 years EKG: Sinus rhythm BORDERLINE LEFT AXIS DEVIATION BORDERLINE ECG PREVIOUS TRACING : 05/25/2016 06.07 No significant change from previous tracing noted. DOCTOR: David Rios Interpretating Date/Time 12/03/2016 08:22:35
[2016-12-03] MEDS: metroNIDAZOLE 500 MG INJ 100 ML IV SCH ×2 (09:02→18:10)
[2016-12-03] MEDS: SODIUM CHLORIDE 0.9% FLUSH 5 ML FLUSH FLUSH SCH ×2 (09:02→21:00)
[2016-12-03 09:15] VITALS: BP 112/70; PULSE 75; RESP 18; TEMP 96.7; O2SAT 98
[2016-12-03 09:37] LABS: HEMATOCRIT 32.6 % (39.0-51.0); REVIEW FLAG FINAL
--- NOTE | 2016-12-03 14:14 | RADRPT ---
EXAM DATE/TIME: 12/03/2016 12:12 [facility] COMPARISON: CT ABDOMEN & PELVIS W/O CONTRAST, December 03, 2016, 3:38. INDICATIONS : Vomiting MEDICAL HISTORY : Chronic obstructive pulmonary disease. SURGICAL HISTORY : Inguinal hernia repair. Left hip replacement ENCOUNTER: Subsequent ACUITY: 2 weeks PAIN SCORE: 0/10 LOCATION: Abdomen FINDINGS: Dilated loops of air-filled small bowel remain evident in the mid abdomen and left upper quadrant. Nu merous clips are seen along the pelvic floor. Patient is status post left hip replacement. CONCLUSION: Persistent proximal small bowel ileus characteristic of a partial small bowel obstruction. Alec Buck MD on December 03, 2016 at 14:09 Board Certified Radiologist. This report was verified electronically.
--- NOTE | 2016-12-03 14:47 | PD.ID.CON ---
History of Present Illness Service ID Consult Requested By Dr Velez Reason for Consult fever in returning traveller Primary Care Physician Norma Mays MD Diagnoses: History of Present Illness 71 yo male with unremarkable past med hx presented with 10 day h/o daily fevers up to 102, GI discomfort, including abdominal pain, decreased appateite, nausea vomiting and abdominal distension He presented today after passing out and hitting his head and hand Denies diarrhea He was on [place] startind Nov 15 and his problem started on the way back home on nov 22. A night prior he ate a raw vegetable salad in local restaurant. His denies having any similar symptoms, she has not eaten any raw food while on [employer], only well cooked. Pt denies unusual animal or insect exposure and the couple was using DEEt for mosquito bites prevention. They lived in a local hotel and thre activity included swimming and beaching Pt was not any abx since he developped the above3 smx untill he presented today pt had CT A/P done that showed possible early small bowel obstruction, he was seen by Dr Velez who recommended conservative mangement, clinical observation and working up for infection Pt was started in Cipro and Flagyl IV No more emesis Review of Systems Other as per history of present illness, the rest of 12 point reviw is negative Past Family Social History Allergies: Coded Allergies: No Known Allergies (Verified , 12/03/16) Past Medical History PMH: None Past Surgical History Inguinal Hernia Repair, Left Hip Replacement Active Ordered Medications Medications where reviewed in EMR Antibiotics Include: Cipro and Flagyl IV Family History Non-Contributory. Social History remote Tobacco. No ETOH. No Illicit Drugs. Physical Exam Vital Signs Vital Signs Date Time Temp Pulse Resp B/P Pulse Ox O2 Delivery O2 Flow Rate FiO2 12/03/16 09:15 96.7 75 18 112/70 98 12/03/16 03:01 97 Room Air 12/03/16 03:01 67 16 96 Room Air 12/03/16 03:01 16 12/03/16 02:52 97.8 69 16 109/76 96 Physical Exam CONSTITUTIONAL/GENERAL: This is an adequately nourished patient, in no apparent distress. TUBES/LINES/DRAINS: SKIN: No jaundice, rashes, + scally erythematou lesions mostly on sun exposed areas cw actinic keratitis. Skin temperature appropriate. Not diaphoretic. HEAD: Atraumatic. Normocephalic. EYES: Pupils equal and round and reactive. Extraocular motions intact. No scleral icterus. No injection or drainage. Fundi not examined. ENT: Hearing grossly normal. Nose without bleeding or purulent drainage. Throat without visible erythema, exudates, masses, or lesions. NECK: Trachea midline. Supple, nontender. CARDIOVASCULAR: Regular rate and rhythm without murmurs, gallops, or rubs. No JVD. Peripheral pulses symmetric. RESPIRATORY/CHEST: Symmetric, unlabored respirations. Clear to auscultation. Breath sounds equal bilaterally. No wheezes, rales, or rhonchi. GASTROINTESTINAL: Abdomen soft, non-tender, moderately distended. No hepato- splenomegaly, or palpable masses. No guarding. Bowel sounds present. GENITOURINARY: Without palpable bladder distension. MUSCULOSKELETAL: Extremities without clubbing, cyanosis, or edema. No joint tenderness or effusion noted. No calf tenderness. No mottling or clubbing. LYMPHATICS: No palpable cervical or supraclavicular adenopathy. NEUROLOGICAL: Awake and alert. Motor and sensory grossly within normal limits. Follows commands. Cognitively sharp. Moves all extremities. PSYCHIATRIC: No obvious anxiety/depression. no apparent hallucinations or other psychotic thought process. Laboratory Laboratory Tests Test 12/03/16 12/03/16 12/03/16 03:15 06:00 09:22 White Blood Count 14.0 Red Blood Count 3.98 Hemoglobin 12.7 11.2 Hematocrit 36.5 32.6 Mean Corpuscular Volume 91.7 Mean Corpuscular Hemoglobin 31.9 Mean Corpuscular Hemoglobin 34.8 Concent Red Cell Distribution Width 13.1 Platelet Count 427 Mean Platelet Volume 7.6 Neutrophils (%) (Auto) 78.7 Lymphocytes (%) (Auto) 12.0 Monocytes (%) (Auto) 7.9 Eosinophils (%) (Auto) 1.2 Basophils (%) (Auto) 0.2 Neutrophils # (Auto) 11.0 Lymphocytes # (Auto) 1.7 Monocytes # (Auto) 1.1 Eosinophils # (Auto) 0.2 Basophils # (Auto) 0.0 CBC Comment AUTO DIFF Differential Total Cells 100 Counted Neutrophils % (Manual) 67 Band Neutrophils % 4 Lymphocytes % 18 Monocytes % 9 Eosinophils % 1 Neutrophils # (Manual) 10.1 Myelocytes 1 Differential Comment FINAL DIFF MANUAL Atypical Lymphocytes Platelet Estimate NORMAL Platelet Morphology Comment NORMAL Red Cell Morphology Comment NORMAL Prothrombin Time 11.1 Prothromb Time International 1.0 Ratio Activated Partial 25.0 Thromboplast Time Sodium Level 134 Potassium Level 3.9 Chloride Level 97 Carbon Dioxide Level 25.0 Anion Gap 12 Blood Urea Nitrogen 15 Creatinine 1.05 Estimat Glomerular Filtration 70 Rate Random Glucose 154 Lactic Acid Level 1.7 Calcium Level 8.7 Total Bilirubin 0.4 Aspartate Amino Transf 30 (AST/SGOT) Alanine Aminotransferase 34 (ALT/SGPT) Alkaline Phosphatase 56 Total Creatine Kinase 95 Troponin I LESS THAN 0.02 0.02 Total Protein 6.6 Albumin 2.7 Lipase 77 Urine Color LIGHT-YELLOW Urine Turbidity CLEAR Urine pH 7.0 Urine Specific [place] 1.008 Urine Protein NEG Urine Glucose (UA) NEG Urine Ketones 10 Urine Occult Blood NEG Urine Nitrite NEG Urine Bilirubin NEG Urine Urobilinogen LESS THAN 2.0 Urine Leukocyte Esterase NEG Urine RBC 1 Urine WBC 2 Urine Bacteria FEW Urine Mucus FEW Microscopic Urinalysis Comment CULT NOT INDICATED Result Diagram: 12/03/1692112/03/16314 Imaging Last Impressions Head CT 12/03/16257 Signed Impressions: Service Date/Time: Saturday, December 03, 2016 03:30 - CONCLUSION: No acute intracranial disease. Henry Servin MD Cervical Spine CT 12/03/16257 Signed Impressions: Service Date/Time: Saturday, December 03, 2016 03:32 - CONCLUSION: No fracture or subluxation. Minimal retrolisthesis C5 on C6, degenerative in nature. Henry Servin MD Chest X-Ray 12/03/16253 Signed Impressions: Service Date/Time: Saturday, December 03, 2016 02:56 - CONCLUSION: No acute disease. Henry Servin MD Abdomen/Pelvis CT 12/03/16253 Signed Impressions: Service Date/Time: Saturday, December 03, 2016 03:38 - CONCLUSION: 1. Multiple dilated loops of small bowel which can be seen with early obstruction. 2. Diverticulosis without diverticulitis. 3. Minimal ascites. Henry Servin MD Assessment and Plan Assessment and Plan Fever with GI complaints in returned traveller ([facility]) - + exposure to potential food born pathogens Rec's: cont cipro + flagyl - fu blood clx - chk stool studies - monitor clinically Discussed Condition With pt, at b/s Magda Quinteros MD Dec 03, 2016 14:47
[2016-12-03 17:17] LABS: HEMATOCRIT 31.9 % (39.0-51.0); REVIEW FLAG FINAL
[2016-12-03 17:26] VITALS: BP 120/68; PULSE 70; RESP 20; TEMP 96.2; O2SAT 95
[2016-12-03 21:56] VITALS: BP 117/83; PULSE 70; RESP 20; TEMP 96.4; O2SAT 97
[2016-12-03] MEDS ORDERED: DIATRIZOATE MEGLUM/DIATRIZOATE SOD 120 ML BTL (for RAD DIAG) PO ONE (21:59)
--- NOTE | 2016-12-03 22:45 | RADRPT ---
EXAM DATE/TIME: 12/03/2016 19:29 CORRECTION Corrected on: December 05, 2016; CORRECTED: Added missing examform information. [facility] COMPARISON: No previous studies available for comparison. INDICATIONS : Possible small bowel obstruction. Hematemesis. Epigastric pain. Lack of bowel movement. FLUORO TIME: 0 minutes IMAGE COUNT: 11 CONTRAST: [facility] IMAGING TIME(S): 15 min, 30 min, 45 min, 1 hr, 1.5 hrs, 2.5 hrs MEDICAL HISTORY : Chronic obstructive pulmonary disease. SURGICAL HISTORY : Inguinal hernia repair. Left hip arthroplasty. ENCOUNTER: Subsequent ACUITY: 2 days PAIN SCORE: 3/10 LOCATION: upper quadrant abdomen, epigastric FINDINGS: The preliminary AP edge burnisher uppers films demonstrate gas and stool noted segmentally in the colon. There is a l oop of mildly dilated air-containing small bowel in the mid and left abdomen measuring up to 4.4 cm i n diameter. The patient is status post left hip arthroplasty. There are multiple surgical clips and s taples in the pelvis. The stomach is grossly unremarkable. There is a small hiatal hernia. Examination of the small bowel demonstrates mild prominence of multiple loops of jejunum and ileum. T erminal ileum is not well-visualized. There is no evidence of mass or obstruction. No intraluminal f illing defects are identified. Small bowel transit time is normal at approximately 1-1/2 hours. adair norris. On the 2 hour film there was contrast throughout the colon. CONCLUSION: No evidence of obstruction. There are prominent loops of small bowel which are most c onsistent with an ileus. Huey Mcbride MD on December 03, 2016 at 22:39 Board Certified Radiologist. This report was verified electronically. Sign Maintenance on December 05, 2016 at 8:31 Board Certified Radiologist. This report was verified electronically.
[2016-12-03 23:16] LABS: HEMATOCRIT 35.9 % (39.0-51.0); REVIEW FLAG FINAL
[2016-12-04] MEDS: PANTOPRAZOLE INJ 80 MG in SODIUM CHLORIDE 0.9% INJ 100 ML IV SCH ×2
[2016-12-04 00:34] VITALS: BP 122/80; PULSE 88; RESP 22; TEMP 97.4; O2SAT 98
[2016-12-04] MEDS: SODIUM CHLOR 0.9% 1000 ML INJ 1,000 ML IV SCH ×3 (00:36→21:26)
[2016-12-04] MEDS: CIPROFLOXACIN 400 MG PREMIX 200 ML IV SCH ×2 (05:05→17:18)
[2016-12-04 07:20] LABS: AUTOMATED NEUTROPHIL # 5.4 TH/MM3 (1.8-7.7); BASOPHIL % 0.2 % (0.0-2.0); EOSINOPHIL # 0.3 TH/MM3 (0-0.4); EOSINOPHIL % 3.3 % (0.0-4.0); HEMATOCRIT 30.5 % (39.0-51.0); HEMO FLAGS DIFF FINAL; LYMPHOCYTE # 1.3 TH/MM3 (1.0-4.8); MEAN CELL VOLUME 91.7 FL (80.0-100.0); MEAN CORPUSCULAR HEMOGLOBIN 32.2 PG (27.0-34.0); MEAN CORPUSCULAR HGB CONC 35.2 % (32.0-36.0); MONO % 9.9 % (0.0-8.0); NEUT % 69.6 % (16.0-70.0); PLATELET COUNT 336 TH/MM3 (150-450); RED BLOOD COUNT 3.33 MIL/MM3 (4.50-5.90); WHITE BLOOD COUNT 7.7 TH/MM3 (4.0-11.0)
[2016-12-04 07:59] LABS: ALKALINE PHOSPHATASE 48 U/L (45-117); ALT (GPT) 22 U/L (12-78); ANION GAP 9 MEQ/L (5-15); AST (GOT) 13 U/L (15-37); BICARBONATE 22.2 MEQ/L (21.0-32.0); BLOOD UREA NITROGEN 7 MG/DL (7-18); CHLORIDE 113 MEQ/L (98-107); GLOMERULAR FILTRATION RATE 97 ML/MIN (>89); POTASSIUM 3.3 MEQ/L (3.5-5.1); SODIUM (NA) 144 MEQ/L (136-145); TOTAL BILIRUBIN ADULT 0.2 MG/DL (0.2-1.0)
[2016-12-04 08:27] VITALS: BP 103/63; PULSE 69; RESP 19; TEMP 98; O2SAT 96
[2016-12-04] MEDS: metroNIDAZOLE 500 MG INJ 100 ML IV SCH ×4 (09:58→23:32)
[2016-12-04] MEDS: SODIUM CHLORIDE 0.9% FLUSH 5 ML FLUSH FLUSH SCH ×2 (09:59→20:55)
[2016-12-04] MEDS: PANTOPRAZOLE SOD 40 MG DELAYED RELEASE TAB PO SCH (10:30)
--- NOTE | 2016-12-04 10:59 | HHI.GIFU ---
Subjective Remarks Sitting up on the side of the bed. Reports that he feels much better today. No nausea or vomiting. No abdominal pain. + BM- multiple liquid stools yesterday. 2 today. No bleeding. (Tammy Puri) Objective Vitals I&O Vital Signs Date Time Temp Pulse Resp B/P Pulse Ox O2 Delivery O2 Flow Rate FiO2 12/04/16 08:27 98.0 69 19 103/63 96 12/04/16 00:34 97.4 88 22 122/80 98 12/03/16 21:56 96.4 70 20 117/83 97 12/03/16 17:26 96.2 70 20 120/68 95 I/O 12/03/16 12/03/16 12/03/16 12/04/16 12/04/16 12/04/16 07:00 15:00 23:00 07:00 15:00 23:00 Output Total 3000 ml Balance -3000 ml Output Emesis 3000 ml Laboratory Laboratory Tests Test 12/03/16 12/03/16 12/03/16 12/04/16 16:30 17:10 23:00 06:32 Hemoglobin 11.1 12.3 10.7 Hematocrit 31.9 35.9 30.5 Troponin I 0.02 White Blood Count 7.7 Red Blood Count 3.33 Mean Corpuscular Volume 91.7 Mean Corpuscular Hemoglobin 32.2 Mean Corpuscular Hemoglobin 35.2 Concent Red Cell Distribution Width 13.0 Platelet Count 336 Mean Platelet Volume 7.2 Neutrophils (%) (Auto) 69.6 Lymphocytes (%) (Auto) 17.0 Monocytes (%) (Auto) 9.9 Eosinophils (%) (Auto) 3.3 Basophils (%) (Auto) 0.2 Neutrophils # (Auto) 5.4 Lymphocytes # (Auto) 1.3 Monocytes # (Auto) 0.8 Eosinophils # (Auto) 0.3 Basophils # (Auto) 0.0 CBC Comment DIFF FINAL Differential Comment Test 12/04/16 07:00 Sodium Level 144 Potassium Level 3.3 Chloride Level 113 Carbon Dioxide Level 22.2 Anion Gap 9 Blood Urea Nitrogen 7 Creatinine 0.79 Estimat Glomerular Filtration 97 Rate Random Glucose 99 Calcium Level 7.6 Total Bilirubin 0.2 Aspartate Amino Transf 13 (AST/SGOT) Alanine Aminotransferase 22 (ALT/SGPT) Alkaline Phosphatase 48 Total Protein 5.6 Albumin 2.3 Date/Time Procedure Status Source Growth 12/03/16 07:05 Aerobic Blood Culture Received Blood Peripheral Pending 12/03/16 07:05 Anaerobic Blood Culture Received Blood Peripheral Pending Imaging Last Impressions Head CT 12/03/16257 Signed Impressions: Service Date/Time: Saturday, December 03, 2016 03:30 - CONCLUSION: No acute intracranial disease. Henry Servin MD Cervical Spine CT 12/03/16257 Signed Impressions: Service Date/Time: Saturday, December 03, 2016 03:32 - CONCLUSION: No fracture or subluxation. Minimal retrolisthesis C5 on C6, degenerative in nature. Henry Servin MD Chest X-Ray 12/03/16253 Signed Impressions: Service Date/Time: Saturday, December 03, 2016 02:56 - CONCLUSION: No acute disease. Henry Servin MD Abdomen/Pelvis CT 12/03/16253 Signed Impressions: Service Date/Time: Saturday, December 03, 2016 03:38 - CONCLUSION: 1. Multiple dilated loops of small bowel which can be seen with early obstruction. 2. Diverticulosis without diverticulitis. 3. Minimal ascites. Henry Servin MD Small Bowel X-Ray 12/03/16 0000 Signed Impressions: Service Date/Time: Saturday, December 03, 2016 19:29 - CONCLUSION: No evidence of obstruction. There are prominent loops of small bowel which are most consistent with an ileus. Huey Mcbride MD Abdomen X-Ray 12/03/16 0000 Signed Impressions: Service Date/Time: Saturday, December 03, 2016 12:12 - CONCLUSION: Persistent proximal small bowel ileus characteristic of a partial small bowel obstruction. Alec Buck MD Physical Exam HEENT: Pupils round and reactive to light; normocephalic; atraumatic; no jaundice. Throat is clear. NECK: Neck is supple, no JVD, no lymphadenopathy. CHEST: Chest is clear to auscultation and percussion. CARDIAC: Regular rate and rhythm with no murmur gallop or rubs. ABDOMEN: Soft, nondistended, nontender; no hepatosplenomegaly; bowel sounds are present in all four quadrants. EXTREMITIES: No clubbing, cyanosis, or edema. SKIN: Normal; no rash; no jaundice. 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 (PuriTammy Trotter [facility]) Assessment and Plan Plan ASSESSMENT: - ? GIB, Coffee ground emesis. One episode of coffee ground emesis yesterday. No hx of PUD. No NSAIDs/ETOH. HH did drop to 10.7/30.5, but no evidence of active gi bleeding. Will monitor. This could be in part dilutional. Protonix Gtt. Clear liquids. No further episodes. - N/V, Abdominal pain with abnormal imaging concerning for possible early small bowel obstruction. Abdomen/Pelvis CT (12/03/16)-----> 1. Multiple dilated loops of small bowel which can be seen with early obstruction. 2. Diverticulosis without diverticulitis. 3. Minimal ascites. Abdomen X-Ray (12/03/16 )-----> Persistent proximal small bowel ileus characteristic of a partial small bowel obstruction. SBFT (12/03/16)---> No evidence of obstruction. There are prominent loops of small bowel which are most consistent with an ileus. Symptoms began on the way back from [place]. He did have ice cubes and salad washed in their water. It started as lower abdominal pain and fevers WITHOUT diarrhea. This was improving but he started having epigastric pain and nausea/vomiting yesterday. No other sick contacts. Pt had 2 hernia surgeries, one inguinal- cannot recall what the other was but denies any other abdominal surgeries. SBFT without bowel obstruction. Clinically much improved. No n/v/pain, is having diarrhea since sbft. Will get stool studies, continue cipro/flagyl. advance diet to full liquids. - Leukocytosis. WBC 14.0----> 7.7. Cipro/Flagyl - Anemia. HH did drop to 10.7/30.5, but no evidence of active gi bleeding. Will monitor. T? dilutional. Protonix Gtt. - Red spotted rash to trunk and upper extremities. Pt reports this is his normal and it is r/t actinic keratosis. PLAN: - Full liquids - Cont. Protonix - Monitor HH - Cont. Cipro/Flagyl - Stool studies - ID/GS following - Supportive care - Further recommendations to follow based on results of above - Pt seen and examined by Dr. Miller and myself and this note is written on his behalf (Tammy Puri) Physician Comments Patient seen and examined Agree with above Continue with current supportive care Monitor labs Probable discharge tomorrow if all is stable Follow-up with GI as outpatient patient will need endoscopy at some point ( Jp Miller MD) Tammy Puri Dec 04, 2016 10:59 Jp Miller MD Dec 04, 2016 20:30
[2016-12-04 12:15] VITALS: BP 110/61; PULSE 70; RESP 19; O2SAT 99
--- NOTE | 2016-12-04 17:16 | HHI.PR ---
Subjective Remarks Follow up for gastroenteritis, diarrhea, partial SBO. Mr. Barber is doing well. He reports no abdominal pain. Denies any fever, chills. He had 6 episodes of diarrhea yesterday and 2 this morning. at bedside. Objective Vitals Vital Signs Date Time Temp Pulse Resp B/P Pulse Ox O2 Delivery O2 Flow Rate FiO2 12/04/16 12:15 70 19 110/61 99 12/04/16 08:27 98.0 69 19 103/63 96 12/04/16 00:34 97.4 88 22 122/80 98 12/03/16 21:56 96.4 70 20 117/83 97 12/03/16 17:26 96.2 70 20 120/68 95 I/O 12/03/16 12/03/16 12/03/16 12/04/16 12/04/16 12/04/16 07:00 15:00 23:00 07:00 15:00 23:00 Output Total 3000 ml Balance -3000 ml Output Emesis 3000 ml Result Diagram: 12/04/16 0632 12/04/16 0700 Imaging Last Impressions Head CT 12/03/16257 Signed Impressions: Service Date/Time: Saturday, December 03, 2016 03:30 - CONCLUSION: No acute intracranial disease. Henry Servin MD Cervical Spine CT 12/03/16257 Signed Impressions: Service Date/Time: Saturday, December 03, 2016 03:32 - CONCLUSION: No fracture or subluxation. Minimal retrolisthesis C5 on C6, degenerative in nature. Henry Servin MD Chest X-Ray 12/03/16253 Signed Impressions: Service Date/Time: Saturday, December 03, 2016 02:56 - CONCLUSION: No acute disease. Henry Servin MD Abdomen/Pelvis CT 12/03/16253 Signed Impressions: Service Date/Time: Saturday, December 03, 2016 03:38 - CONCLUSION: 1. Multiple dilated loops of small bowel which can be seen with early obstruction. 2. Diverticulosis without diverticulitis. 3. Minimal ascites. Henry Servin MD Small Bowel X-Ray 12/03/16 0000 Signed Impressions: Service Date/Time: Saturday, December 03, 2016 19:29 - CONCLUSION: No evidence of obstruction. There are prominent loops of small bowel which are most consistent with an ileus. Huey Mcbride MD Abdomen X-Ray 12/03/16 0000 Signed Impressions: Service Date/Time: Saturday, December 03, 2016 12:12 - CONCLUSION: Persistent proximal small bowel ileus characteristic of a partial small bowel obstruction. Alec Buck MD Objective Remarks GENERAL: AOX3, NAD. SKIN: Warm and dry. HEAD: Normocephalic. EYES: No scleral icterus. No injection or drainage. NECK: Supple, trachea midline. No JVD or lymphadenopathy. CARDIOVASCULAR: Regular rate and rhythm without murmurs, gallops, or rubs. RESPIRATORY: Breath sounds equal bilaterally. No accessory muscle use. GASTROINTESTINAL: Abdomen soft, non-tender, nondistended. MUSCULOSKELETAL: No cyanosis, or edema. BACK: Nontender without obvious deformity. No CVA tenderness. Procedures None. A/P Problem List: (1) GI bleed ICD Code: K92.2 Status: Acute (2) Abdominal pain ICD Code: R10.9 Status: Acute (3) SBO (small bowel obstruction) ICD Code: K56.69 Status: Acute (4) Syncope and collapse ICD Code: R55 Status: Acute Assessment and Plan This is a 71-year-old male with no significant PMH who was brought to the ER by EMS secondary to abdominal pain with associated nausea and vomiting and syncope. Per pt and , they recently traveled to [facility] and returned home on 11/22/16. Patient had coffee ground emesis and syncope. Imaging studies indicated partial small bowel obstruction. Patient has been evaluated by General surgery (Dr. Velez), GI as well as ID. - Probable GI bleed - Coffee ground emesis prior to hospital admission. Resolved. - Decline in hemoglobin values could dilutional effect. - Hgb dropped from 11.1 --> 12.3 --> 10.7. No obvious sign of bleeding - Will repeat H&H. - Discontinue protonix drip and start PO Protonix. - Gastroenteritis - Continue Cipro/Flagyl. - Possibly related to salmonella from salad while in the [facility]. - Continue IV fluid. - Partial SBO - resolving. Patient has had multiple loose BM - Syncope - no further episode. Likely due to vasovagal or due to volume depletion. Full code. SCDs. Problem Qualifiers (1) GI bleed: Qualified Code: K92.2 - Gastrointestinal hemorrhage, unspecified gastrointestinal hemorrhage type Jenni Boucher DO Dec 04, 2016 17:16
[2016-12-04 17:53] LABS: HEMATOCRIT 30.5 % (39.0-51.0); REVIEW FLAG FINAL
[2016-12-04 18:36] LABS: C. DIFF EPI 027 PRESUMPTIVE NEGATIVE (NEGATIVE); C. DIFF TOXIN PCR NEGATIVE (NEGATIVE)
--- NOTE | 2016-12-04 20:04 | HHI.PR ---
Subjective Subjective Notes no abdominal pain or vomiting today Objective Vitals/I&O Vital Signs Date Time Temp Pulse Resp B/P Pulse Ox O2 Delivery O2 Flow Rate FiO2 12/04/16 12:15 70 19 110/61 99 12/04/16 08:27 98.0 12/03/16 03:01 Room Air Labs Laboratory Tests Test 12/03/16 12/04/16 12/04/16 12/04/16 23:00 06:32 07:00 16:30 Hemoglobin 12.3 10.7 Hematocrit 35.9 30.5 White Blood Count 7.7 Red Blood Count 3.33 Mean Corpuscular Volume 91.7 Mean Corpuscular Hemoglobin 32.2 Mean Corpuscular Hemoglobin 35.2 Concent Red Cell Distribution Width 13.0 Platelet Count 336 Mean Platelet Volume 7.2 Neutrophils (%) (Auto) 69.6 Lymphocytes (%) (Auto) 17.0 Monocytes (%) (Auto) 9.9 Eosinophils (%) (Auto) 3.3 Basophils (%) (Auto) 0.2 Neutrophils # (Auto) 5.4 Lymphocytes # (Auto) 1.3 Monocytes # (Auto) 0.8 Eosinophils # (Auto) 0.3 Basophils # (Auto) 0.0 CBC Comment DIFF FINAL Differential Comment Sodium Level 144 Potassium Level 3.3 Chloride Level 113 Carbon Dioxide Level 22.2 Anion Gap 9 Blood Urea Nitrogen 7 Creatinine 0.79 Estimat Glomerular Filtration 97 Rate Random Glucose 99 Calcium Level 7.6 Total Bilirubin 0.2 Aspartate Amino Transf 13 (AST/SGOT) Alanine Aminotransferase 22 (ALT/SGPT) Alkaline Phosphatase 48 Total Protein 5.6 Albumin 2.3 Stool C. difficile Toxin (PCR) NEGATIVE Stl C. difficile Toxin PRESUMPTIVE Epiderm 027 NEGATIVE Test 12/04/16 17:42 Hemoglobin 10.7 Hematocrit 30.5 Date/Time Procedure Status Source Growth 12/03/16 07:05 Aerobic Blood Culture Received Blood Peripheral Pending 12/03/16 07:05 Anaerobic Blood Culture Received Blood Peripheral Pending Lungs: Clear Abdomen: Non-distended, Non-tender A/P Assessment and Plan improved; infectious disease feels this may be salmonella. Agree with plan. Will sign off; reconsult if needed. Huey Velez MD Dec 04, 2016 20:04
[2016-12-04 21:10] VITALS: BP 118/56; PULSE 79; RESP 18; TEMP 98.1; O2SAT 99
[2016-12-05 00:33] VITALS: BP 126/64; PULSE 97; RESP 18; TEMP 98.4; O2SAT 100
[2016-12-05 04:48] VITALS: BP 147/87; PULSE 84; RESP 21; TEMP 98.7; O2SAT 98
[2016-12-05] MEDS: CIPROFLOXACIN 400 MG PREMIX 200 ML IV SCH (05:37)
[2016-12-05 08:10] VITALS: BP 119/68; PULSE 61; RESP 18; TEMP 97; O2SAT 97
[2016-12-05] MEDS: SODIUM CHLORIDE 0.9% FLUSH 5 ML FLUSH FLUSH SCH (09:00)
--- NOTE | 2016-12-05 09:27 | HHI.PR ---
Objective Vitals Vital Signs Date Time Temp Pulse Resp B/P Pulse Ox O2 Delivery O2 Flow Rate FiO2 12/05/16 08:10 97.0 61 18 119/68 97 12/05/16 04:48 98.7 84 21 147/87 98 12/05/16 00:33 98.4 97 18 126/64 100 12/04/16 21:10 98.1 79 18 118/56 99 12/04/16 12:15 70 19 110/61 99 Result Diagram: 12/04/16 1742 12/04/16 0700 Objective Remarks GENERAL: AOX3, NAD. SKIN: Warm and dry. HEAD: Normocephalic. EYES: No scleral icterus. No injection or drainage. NECK: Supple, trachea midline. No JVD or lymphadenopathy. CARDIOVASCULAR: Regular rate and rhythm without murmurs, gallops, or rubs. RESPIRATORY: Breath sounds equal bilaterally. No accessory muscle use. GASTROINTESTINAL: Abdomen soft, non-tender, nondistended. MUSCULOSKELETAL: No cyanosis, or edema. BACK: Nontender without obvious deformity. No CVA tenderness. Procedures None. A/P Problem List: (1) GI bleed ICD Code: K92.2 Status: Acute (2) Abdominal pain ICD Code: R10.9 Status: Acute (3) SBO (small bowel obstruction) ICD Code: K56.69 Status: Acute (4) Syncope and collapse ICD Code: R55 Status: Acute Assessment and Plan This is a 71-year-old male with no significant PMH who was brought to the ER by EMS secondary to abdominal pain with associated nausea and vomiting and syncope. Per pt and , they recently traveled to [facility] and returned home on 11/22/16. Patient had coffee ground emesis and syncope. Imaging studies indicated partial small bowel obstruction. Patient has been evaluated by General surgery (Dr. Velez), GI as well as ID. - Probable GI bleed - Coffee ground emesis prior to hospital admission. Resolved. - Decline in hemoglobin values could dilutional effect. - Hgb dropped from 11.1 --> 12.3 --> 10.7. No obvious sign of bleeding - Will repeat H&H. - Discontinue protonix drip and start PO Protonix. - Gastroenteritis - Continue Cipro/Flagyl. - Possibly related to salmonella from salad while in the [place]. - Continue IV fluid. - Partial SBO - resolving. Patient has had multiple loose BM - Syncope - no further episode. Likely due to vasovagal or due to volume depletion. Full code. SCDs. Problem Qualifiers (1) GI bleed: Qualified Code: K92.2 - Gastrointestinal hemorrhage, unspecified gastrointestinal hemorrhage type Jenni Boucher DO Dec 05, 2016 09:27
[2016-12-05] MEDS: PANTOPRAZOLE SOD 40 MG DELAYED RELEASE TAB PO SCH (09:53)
[2016-12-05] MEDS: metroNIDAZOLE 500 MG INJ 100 ML IV SCH (09:54)
[2016-12-05] MEDS: SODIUM CHLOR 0.9% 1000 ML INJ 1,000 ML IV SCH (09:55)
[2016-12-05] MEDS ORDERED: METR250 PO (10:37)
[2016-12-05] MEDS ORDERED: PANT40TA3 PO (10:37)
[2016-12-05] MEDS ORDERED: CIPR-9 PO (10:37)
--- NOTE | 2016-12-05 11:03 | HHI.GIFU ---
Subjective Remarks Sitting up in chair. Tolerating full liquids. No n/v/pain. Still having "mushy" stool. Stool samples were sent down last night. (Tammy Puri) Objective Vitals I&O Vital Signs Date Time Temp Pulse Resp B/P Pulse Ox O2 Delivery O2 Flow Rate FiO2 12/05/16 08:10 97.0 61 18 119/68 97 12/05/16 04:48 98.7 84 21 147/87 98 12/05/16 00:33 98.4 97 18 126/64 100 12/04/16 21:10 98.1 79 18 118/56 99 12/04/16 12:15 70 19 110/61 99 Laboratory Laboratory Tests Test 12/04/16 12/04/16 16:30 17:42 Stool C. difficile Toxin (PCR) NEGATIVE Stl C. difficile Toxin PRESUMPTIVE Epiderm 027 NEGATIVE Hemoglobin 10.7 Hematocrit 30.5 Date/Time Procedure Status Source Growth 12/03/16 07:05 Aerobic Blood Culture Received Blood Peripheral Pending 12/03/16 07:05 Anaerobic Blood Culture Received Blood Peripheral Pending Imaging Last Impressions Head CT 12/03/16257 Signed Impressions: Service Date/Time: Saturday, December 03, 2016 03:30 - CONCLUSION: No acute intracranial disease. Henry Servin MD Cervical Spine CT 12/03/16257 Signed Impressions: Service Date/Time: Saturday, December 03, 2016 03:32 - CONCLUSION: No fracture or subluxation. Minimal retrolisthesis C5 on C6, degenerative in nature. Henyr Servin MD Chest X-Ray 12/03/16253 Signed Impressions: Service Date/Time: Saturday, December 03, 2016 02:56 - CONCLUSION: No acute disease. Henry Servin MD Abdomen/Pelvis CT 12/03/16253 Signed Impressions: Service Date/Time: Saturday, December 03, 2016 03:38 - CONCLUSION: 1. Multiple dilated loops of small bowel which can be seen with early obstruction. 2. Diverticulosis without diverticulitis. 3. Minimal ascites. Henry Servin MD Small Bowel X-Ray 12/03/16 0000 Signed Impressions: Service Date/Time: Saturday, December 03, 2016 19:29 - CONCLUSION: No evidence of obstruction. There are prominent loops of small bowel which are most consistent with an ileus. Huey Mcbride MD Abdomen X-Ray 12/03/16 0000 Signed Impressions: Service Date/Time: Saturday, December 03, 2016 12:12 - CONCLUSION: Persistent proximal small bowel ileus characteristic of a partial small bowel obstruction. Alec Buck MD Physical Exam HEENT: Normocephalic; atraumatic; no jaundice. Throat is clear. NECK: Neck is supple, no JVD, no lymphadenopathy. CHEST: CTA CARDIAC: RRR ABDOMEN: Soft, nondistended, nontender; no hepatosplenomegaly; bowel sounds are present in all four quadrants. EXTREMITIES: No clubbing, cyanosis, or edema. 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 (Tammy Puri) Assessment and Plan Plan ASSESSMENT: - ? GIB, Coffee ground emesis. One episode of coffee ground emesis yesterday. No hx of PUD. No NSAIDs/ETOH. HH has remained stable with no evidence of GI Bleeding. PPI - N/V, Abdominal pain with abnormal imaging concerning for possible early small bowel obstruction. Abdomen/Pelvis CT (12/03/16)-----> 1. Multiple dilated loops of small bowel which can be seen with early obstruction. 2. Diverticulosis without diverticulitis. 3. Minimal ascites. Abdomen X-Ray (12/03/16 )-----> Persistent proximal small bowel ileus characteristic of a partial small bowel obstruction. SBFT (12/03/16)---> No evidence of obstruction. There are prominent loops of small bowel which are most consistent with an ileus. Symptoms began on the way back from [place]. He did have ice cubes and salad washed in their water. It started as lower abdominal pain and fevers WITHOUT diarrhea. This was improving but he started having epigastric pain and nausea/vomiting yesterday. No other sick contacts. Pt had 2 hernia surgeries, one inguinal- cannot recall what the other was but denies any other abdominal surgeries. SBFT without bowel obstruction. Clinically much improved. No n/v/pain, is having diarrhea since sbft. CDiff negative, Stool samples pending. ID following, recommends 5 more days of cipro/flagyl. Will advance to soft diet. Okay to d/c home from GI standpoint., continue cipro/flagyl. advance diet to full liquids. - Leukocytosis. Improved. Cipro/Flagyl - Anemia. HH stable. - Red spotted rash to trunk and upper extremities. Pt reports this is his normal and it is r/t actinic keratosis. PLAN: - Soft diet - Cont. Protonix - Cont. Cipro/Flagyl x 5 more days per ID recommendations - Await final Stool studies - Okay to d/c home from GI standpoint - FU ELAINE 2-3 weeks - EGD/Colonoscopy as outpatient - Pt seen and examined by Dr. Miller and myself and this note is written on his behalf (Tammy Puri) Physician Comments Patient seen and examined Agree with above Continue with current supportive care Monitor labs Okay for discharge from a GI standpoint (Jp Miller MD) Tammy Puri Dec 05, 2016 11:03 Jp Miller MD Dec 05, 2016 21:40
[2016-12-05 11:44] VITALS: BP 112/72; PULSE 60; RESP 18; TEMP 98.1; O2SAT 99
--- NOTE | 2016-12-05 19:19 | HHI.DS ---
Discharge Summary Admission Date Dec 03, 2016 at 05:19 Discharge Date: Dec 05, 2016 Admitting Diagnosis GI BLEED, SYNCOPE (1) GI bleed ICD Code: K92.2 Diagnosis: Principal (2) Abdominal pain ICD Code: R10.9 (3) SBO (small bowel obstruction) ICD Code: K56.69 Diagnosis: Principal (4) Syncope and collapse ICD Code: R55 (5) Gastroenteritis ICD Code: K52.9 Diagnosis: Principal Procedures None. Brief History - From Admission This is a 71-year-old male with no significant PMH who was brought to the ER by EMS secondary to abdominal pain with associated nausea and vomiting and syncope. Per pt and , they recently traveled to [facility] and returned home on 11/22/16. That night, pt complained of abdominal pain, symptoms have been intermittent since then. Today pt had gotten up to go to the bathroom, had episode of coffee ground emesis followed by syncope lasting approx 30seconds. No seizure activity noted. BP noted to be in the 80s systolic by EMS. On arrival, BP 109/76, HR 69, O2 sat 96% on RA, Afebrile. WBC 14.0. Chemistry essentially unremarkable. Troponin negative. CT Head and C-spine negative for acute findings. CXR with no acute findings. CT Abd/ Pelvis w/ dilated loops of small bowel, possibly early obstruction. Hemoccult negative. Started on Protonix gtt in ER. Pt and requesting to be seen by Dr. Velez and GI doctor. CBC/BMP: 12/04/16 1742 12/04/16 0700 Significant Findings Laboratory Tests Test 12/03/16 12/03/16 12/03/16 12/03/16 03:15 06:00 09:22 16:30 White Blood Count 14.0 TH/MM3 (4.0-11.0) Red Blood Count 3.98 MIL/MM3 (4.50-5.90) Hemoglobin 12.7 GM/DL 11.2 GM/DL 11.1 GM/DL (13.0-17.0) (13.0-17.0) (13.0-17.0) Hematocrit 36.5 % 32.6 % 31.9 % (39.0-51.0) (39.0-51.0) (39.0-51.0) Neutrophils (%) (Auto) 78.7 % (16.0-70.0) Neutrophils # (Auto) 11.0 TH/MM3 (1.8-7.7) Monocytes # (Auto) 1.1 TH/MM3 (0-0.9) Monocytes % 9 % (0-8) Neutrophils # (Manual) 10.1 TH/MM3 (1.8-7.7) Myelocytes 1 % (0-0) Sodium Level 134 MEQ/L (136-145) Chloride Level 97 MEQ/L (98-107) Estimat Glomerular Filtration 70 ML/MIN (>89) Rate Random Glucose 154 MG/DL (74-106) Troponin I LESS THAN 0.02 NG/ML (0.02-0.05) Albumin 2.7 GM/DL (3.4-5.0) Urine Ketones 10 mg/dL (NEG) Urine Bacteria FEW /hpf (NONE) Urine Mucus FEW /lpf (OCC) Test 12/03/16 12/04/16 12/04/16 12/04/16 23:00 06:32 07:00 17:42 Hemoglobin 12.3 GM/DL 10.7 GM/DL 10.7 GM/DL (13.0-17.0) (13.0-17.0) (13.0-17.0) Hematocrit 35.9 % 30.5 % 30.5 % (39.0-51.0) (39.0-51.0) (39.0-51.0) Red Blood Count 3.33 MIL/MM3 (4.50-5.90) Monocytes (%) (Auto) 9.9 % (0.0-8.0) Potassium Level 3.3 MEQ/L (3.5-5.1) Chloride Level 113 MEQ/L (98-107) Calcium Level 7.6 MG/DL (8.5-10.1) Aspartate Amino Transf 13 U/L (15-37) (AST/SGOT) Total Protein 5.6 GM/DL (6.4-8.2) Albumin 2.3 GM/DL (3.4-5.0) Imaging Last Impressions Head CT 12/03/16257 Signed Impressions: Service Date/Time: Saturday, December 03, 2016 03:30 - CONCLUSION: No acute intracranial disease. Henry Servin MD Cervical Spine CT 12/03/16257 Signed Impressions: Service Date/Time: Saturday, December 03, 2016 03:32 - CONCLUSION: No fracture or subluxation. Minimal retrolisthesis C5 on C6, degenerative in nature. Henry Servin MD Chest X-Ray 12/03/16253 Signed Impressions: Service Date/Time: Saturday, December 03, 2016 02:56 - CONCLUSION: No acute disease. Henry Servin MD Abdomen/Pelvis CT 12/03/16253 Signed Impressions: Service Date/Time: Saturday, December 03, 2016 03:38 - CONCLUSION: 1. Multiple dilated loops of small bowel which can be seen with early obstruction. 2. Diverticulosis without diverticulitis. 3. Minimal ascites. Henry Servin MD Small Bowel X-Ray 12/03/16 0000 Signed Impressions: Service Date/Time: Saturday, December 03, 2016 19:29 - CONCLUSION: No evidence of obstruction. There are prominent loops of small bowel which are most consistent with an ileus. Huey Mcbride MD Abdomen X-Ray 12/03/16 0000 Signed Impressions: Service Date/Time: Saturday, December 03, 2016 12:12 - CONCLUSION: Persistent proximal small bowel ileus characteristic of a partial small bowel obstruction. Alec Buck MD PE at Discharge GENERAL: AOX3, NAD. SKIN: Warm and dry. HEAD: Normocephalic. EYES: No scleral icterus. No injection or drainage. NECK: Supple, trachea midline. No JVD or lymphadenopathy. CARDIOVASCULAR: Regular rate and rhythm without murmurs, gallops, or rubs. RESPIRATORY: Breath sounds equal bilaterally. No accessory muscle use. GASTROINTESTINAL: Abdomen soft, non-tender, nondistended. MUSCULOSKELETAL: No cyanosis, or edema. BACK: Nontender without obvious deformity. No CVA tenderness. Pt update on day of discharge Mr. Barber is doing much better today. Denies any abdominal pain, fever, chills. Hospital Course This is a 71-year-old male with no significant PMH who was brought to the ER by EMS secondary to abdominal pain with associated nausea and vomiting and syncope. Per pt and , they recently traveled to [facility] and returned home on 11/22/16. Patient had coffee ground emesis and syncope. Imaging studies indicated partial small bowel obstruction. Patient has been evaluated by General surgery (Dr. Vleez), GI as well as ID. - Probable GI bleed - Coffee ground emesis prior to hospital admission. Resolved. - Decline in hemoglobin values could dilutional effect. - Hgb dropped from 11.1 --> 12.3 --> 10.7. No obvious sign of bleeding - Continue PO Protonix. - Patient and family member want to see Dr. Amaury Poole (GI) in the outpatient setting. - Will refer to Dr. Poole for follow up. - Gastroenteritis - Continue Cipro/Flagyl. - Possibly related to salmonella from salad while in the [facility]. - Continue IV fluid. - Discussed with ID. We will continue Cipro/flagyl for 5 days. - Partial SBO - resolving. Patient has had multiple loose BM - Syncope - no further episodes. Likely due to vasovagal and/or due to volume depletion. Pt Condition on Discharge: Good Discharge Disposition: Discharge Home Discharge Time: > 30 minutes Discharge Instructions DIET: Follow Instructions for: As Tolerated, No Restrictions Additional Diet Instructions: Gradually advance diet. Activities you can perform: Regular-No Restrictions Follow up Referrals: Gastroenterology - 2 Weeks with Amaury Poole MD PCP Follow-up - 1 Week New Medications: Ciprofloxacin (Cipro) 500 Mg Tab 500 MG PO BID Infection #10 Ref 0 TAB Metronidazole (Flagyl) 250 Mg Tab 250 MG PO TID Infection #15 Ref 0 TAB Pantoprazole (Pantoprazole) 40 Mg Tab 40 MG PO DAILY refl #30 TAB Jenni Boucher DO Dec 05, 2016 19:19
== END 2016-12-05 12:41 | disposition home or self-care (01) | DRG 372 ==
LOC: NEPC 02:43 → NEDA 05:19 → NEPGCP 07:45
PROVIDERS: ADMIT Hospitalist; ATTEND Hospitalist
DX: A02.0 Salmonella enteritis (principal); K92.0 Hematemesis; K56.69 Other intestinal obstruction; R55 Syncope and collapse; E86.9 Volume depletion, unspecified; D64.9 Anemia, unspecified; D72.829 Elevated white blood cell count, unspecified; K57.30 Diverticulosis of large intestine without perforation or abscess without bleeding; L57.0 Actinic keratosis
CPT/HCPCS: 70450; 71010; 72125; 74000; 74176; 74250; 80053; 81001; 82550; 83605; 83690; 84484; 85007; 85014; 85018; 85025; 85027; 85610; 85730; 87040; 87493; 93005; 96361; 96374; 96375; C9113; J0744; J2405; J7030; Q9963

== ENCOUNTER 2018-04-26 17:25 | Emergency (ER) | payer MEDICARE ==
[~2018-04-26] VITALS: Ht 172.7 cm; Wt 75.0 kg
[~2018-04-26 17:25] MED LIST changes: +CIPR-9 PO; -CIPR500T4 PO; +METR250 PO; +PANT40TA3 PO; -PRED5TAB PO
[2018-04-26 17:28] VITALS: BP 142/73; PULSE 62; RESP 16; TEMP 97.2; O2SAT 98
[2018-04-26] MEDS ORDERED: PROPARACAINE HCL 0.5% OPHT SOLN 15 ML BTL EACH EYE ONE (18:00)
--- NOTE | 2018-04-26 18:06 | PD ---
HPI Chief Complaint: Eye Problems/Injury Time Seen by Provider: 18:03 Travel History International Travel<30 days: No Contact w/Intl Traveler<30days: No Traveled to known affect area: No History of Present Illness HPI After sneezing the patient noted a spidery-like floater over his left upper outer quadrant of his left eye, it that seems to move her though lagging nature , seemed to move and follow his eye movement. Patient denies any pain, headache , visual loss, red eye, or tearing. No known drug allergy Past medical history significant for corrective lenses, COPD, hernia inguinal repair, left hip replacement, [facility], [facility] Past Medical History Asthma: No Blood Disorders: No Anxiety: No Depression: No Heart Rhythm Problems: No Cancer: No Cardiovascular Problems: No High Cholesterol: No Chemotherapy: No Chest Pain: No Congestive Heart Failure: No COPD: Yes Diabetes: No Diminished Hearing: No Endocrine: No Genitourinary: No Immune Disorder: No Neurologic: No Psychiatric: No Reproductive: No Respiratory: Yes Immunizations Current: Yes Radiation Therapy: No Sleep Apnea: No Thyroid Disease: No Past Surgical History Abdominal Surgery: Yes (hernia, inguinal) Body Medical Devices: left hip replacement Joint Replacement: Yes (LEFT HIP 2003) Social History Alcohol Use: No Tobacco Use: No Substance Use: No Allergies-Medications (Allergen,Severity, Reaction): Coded Allergies: No Known Allergies (Verified Adverse Reaction, Unknown, 04/26/18) Reported Meds & Prescriptions Reported Meds & Active Scripts Active Pantoprazole (Pantoprazole Sodium) 40 Mg Tab 40 Mg PO DAILY Flagyl (Metronidazole) 250 Mg Tab 250 Mg PO TID Cipro (Ciprofloxacin HCl) 500 Mg Tab 500 Mg PO BID Review of Systems Eyes: Positive: Other (Floaters noted on left eye) Physical Exam Narrative GENERAL: SKIN: Warm and dry. HEAD: Atraumatic. Normocephalic. EYES: Pupils equal and round. No scleral icterus. No injection or drainage. Proparacaine drops applied, Frantz-Pen pressures were 14/16 right eye, 15/16 left eye, negative fluorescein uptake, negative Fabi's, EOMI, no evidence of any hyphema on either eye. Bedside ultrasound performed with a high frequency probe no evidence of any retinal flap consistent with retinal detachment ENT: No nasal bleeding or discharge. Mucous membranes pink and moist. NECK: Trachea midline. No JVD. CARDIOVASCULAR: Regular rate and rhythm. RESPIRATORY: No accessory muscle use. Clear to auscultation. Breath sounds equal bilaterally. GASTROINTESTINAL: Abdomen soft, non-tender, nondistended. Hepatic and splenic margins not palpable. MUSCULOSKELETAL: Extremities without clubbing, cyanosis, or edema. No obvious deformities. NEUROLOGICAL: Awake and alert. No obvious cranial nerve deficits. Motor grossly within normal limits. Five out of 5 muscle strength in the arms and legs. Normal speech. PSYCHIATRIC: Appropriate mood and affect; insight and judgment normal. Data Data Last Documented VS Vital Signs Date Time Temp Pulse Resp B/P (MAP) Pulse Ox O2 Delivery O2 Flow Rate FiO2 04/26/18 17:28 97.2 62 16 142/73 (96) 98 Orders Orders ^ Other Nursing Orders (04/26/18 17:49) Proparacaine 0.5% Opth Soln (Alcaine 0.5 (04/26/18 18:00) MDM Medical Decision Making Medical Screen Exam Complete: Yes Emergency Medical Condition: Yes Medical Record Reviewed: Yes Differential Diagnosis Glaucoma versus retinal detachment versus vitreous hemorrhage versus floater Narrative Course Clinically the patient had normal Frantz-Pen pressures, no evidence of any hyphema , no evidence of any lens dislocation, on ultrasound there is no evidence of any flapping on the retina region to consider any large retinal detachment defects. Patient is urged to follow-up with ophthalmology for additional testing Diagnosis Primary Impression: Vitreous floaters of left eye Referrals: Sindy Culp MD OUTPATIENT REFERRAL FOR FLOATERS EVAL FOR RETINAL INJURY Patient Instructions: General Instructions, Visual Floaters (ED) Additional Instructions: Your advised to call Dr. Culp's office on Saturday to schedule a same- day appointment for further visual evaluation, Disposition: 01 DISCHARGE HOME Condition: Stable Carlton Garcia MD Apr 26, 2018 18:06
== END 2018-04-26 18:59 | disposition home or self-care (01) ==
LOC: NEPE 17:25
DX: H43.392 Other vitreous opacities, left eye (principal)
CPT/HCPCS: 99283